=== PATIENT | female | born 1980 | race Caucasian/White ===

== ENCOUNTER 2018-08-14 10:05 | Observation (INO) | payer BC ==
[2018-08-14] VITALS: BP 99/55
[~2018-08-14] VITALS: Ht 157.5 cm; Wt 59.1 kg
[2018-08-14 10:34] LABS: BASOPHILS 0.9 % (0-2); EOSINOPHILS 2.1 % (0-7); HEMATOCRIT 26.7 % (36.0-48.0); HEMOGLOBIN 8.2 g/dL (12-16); IMMATURE GRANULOCYTES 0.2 % (0-5); LYMPHOCYTES 35.2 % (15-50); MCH 25.1 pg (26.0-34.0); MCHC 30.7 g/dL (31.0-37.0); MCV 81.7 fL (80.0-100.0); MEAN PLATELET VOLUME 8.4 fL (7.4-10.4); MONOCYTES 7.2 % (2-11); NEUTROPHILS 54.4 % (40-80); PLATELET COUNT 427 10x3/uL (130-400); RBC 3.27 10x6/uL (4.00-5.40); RDW 14.7 % (11.5-14.5); WBC 5.7 10x3/uL (4.8-10.8)
[2018-08-14 10:54] LABS: APTT 26.2 SECONDS (22.8-39.4); INR 1.08 (0.85-1.17); PROTIME 13.5 SECONDS (11.6-15.0)
[2018-08-14 11:06] LABS: ALBUMIN 3.4 g/dL (3.4-5.0); ALKALINE PHOSPHATASE 42 U/L (46-116); ALT (SGPT) 16 U/L (10-68); BILIRUBIN - TOTAL 0.22 mg/dL (0.2-1.3); CALC OSMOLALITY 274 mosm/kg (275-300); CALCIUM 8.5 mg/dL (8.5-10.1); CARBON DIOXIDE 27.9 mmol/L (21.0-32.0); CHLORIDE - SERUM 103 mmol/L (98-107); CREATININE - SERUM 0.8 mg/dL (0.6-1.3); GLUCOSE 84 mg/dL (74-106); POTASSIUM - SERUM 3.8 mmol/L (3.5-5.1); PROTEIN - SERUM 6.7 g/dL (6.4-8.2); SODIUM 139 mmol/L (136-145); UREA NITROGEN 7 mg/dL (7-18); eGFR NON AFRICAN AMERICAN 86 mL/min (90-120)
[2018-08-14 11:12] LABS: CKMB 0.4 U/L (0.0-3.6); CREATINE KINASE 65 UL (21-215); THYROID STIMULATING HORMONE 6.21 uIU/mL (0.36-3.74)
[2018-08-14 11:13] LABS: TROPONIN-I < 0.017 ng/mL (0.000-0.060)
[2018-08-14 12:12] VITALS: BP 119/74
[2018-08-14 12:13] LABS: T4 THYROXIN - FREE 0.73 ng/dL (0.76-1.46); T4 THYROXINE 5.2 ug/dL (4.7-13.3)
--- NOTE | 2018-08-14 12:42 | NUR ---
REPORT TO ANGELY GONZALEZ ON MED 2. WILL MEDICATE AND THEN TRANSPORT
--- NOTE | 2018-08-14 12:43 | NUR ---
RECIEVED REPORT FROM ER. ER STATED THEY WILL GIVE SYNTHROID AND ASA
[2018-08-14 13:45] VITALS: BP 121/70; Ht 157.5 cm; Wt 59.1 kg
[2018-08-14 16:08] VITALS: BP 123/64
--- NOTE | 2018-08-14 17:31 | NUR ---
UNIT ADMINISTRATER HAD TO BABYSIT THE PTS CHILD SO SHE COULD GET HER MRI. SHE ADVISED THE PT TO HACE THE CHILD TAKEN HOME SOON, PT SAID IT WOULD BE A WHILE. TILE GRINDER WAS INFORMED.
[2018-08-14 18:55] LABS: TOTAL IRON BIND CAPACITY 305 ug/dl (260-445)
--- NOTE | 2018-08-14 19:20 | NUR ---
PT IN BED. CHILD AT BEDSIDE. PT DENIES NEEDS AT THIS TIME
[2018-08-14 19:25] LABS: % SATURATION 2 % (15-55); IRON 9 ug/dl (35-150); UNSAT IRON BIND CAPACITY 296 ug/dl (150-375)
[2018-08-14 20:00] VITALS: BP 98/50
--- NOTE | 2018-08-15 02:05 | NUR ---
I have reviewed this patient and I concur with the Shift Assessment completed by the Licensed Practical Nurse today this shift.
[2018-08-15 04:23] VITALS: BP 90/54
[2018-08-15 05:48] LABS: BASOPHILS 0.4 % (0-2); EOSINOPHILS 4.5 % (0-7); HEMATOCRIT 27.4 % (36.0-48.0); HEMOGLOBIN 8.3 g/dL (12-16); LYMPHOCYTES 43.6 % (15-50); MCHC 30.3 g/dL (31.0-37.0); MCV 82.5 fL (80.0-100.0); MEAN PLATELET VOLUME 8.6 fL (7.4-10.4); MONOCYTES 8.7 % (2-11); NEUTROPHILS 42.8 % (40-80); PLATELET COUNT 456 10x3/uL (130-400); RBC 3.32 10x6/uL (4.00-5.40); RDW 14.9 % (11.5-14.5); WBC 4.7 10x3/uL (4.8-10.8)
[2018-08-15 06:54] LABS: ALBUMIN 2.9 g/dL (3.4-5.0); ALKALINE PHOSPHATASE 29 U/L (46-116); ALT (SGPT) 13 U/L (10-68); CALC OSMOLALITY 281 mosm/kg (275-300); CALCIUM 7.8 mg/dL (8.5-10.1); CARBON DIOXIDE 28.4 mmol/L (21.0-32.0); CHLORIDE - SERUM 107 mmol/L (98-107); CREATININE - SERUM 0.7 mg/dL (0.6-1.3); GLUCOSE 90 mg/dL (74-106); PROTEIN - SERUM 5.8 g/dL (6.4-8.2); SODIUM 142 mmol/L (136-145); eGFR NON AFRICAN AMERICAN > 90 mL/min (90-120)
[2018-08-15 06:55] LABS: UREA NITROGEN 9 mg/dL (7-18)
--- NOTE | 2018-08-15 07:33 | NUR ---
PT ASLEEP, DAUGHTER AT BEDISDE. DOESN'T KNOW WHEN CHILD WILL BE LEAVING. CL INREACH. SRX2.
--- NOTE | 2018-08-15 08:26 | NUR ---
SPOKE WITH PATIENT ABOUT CHILD STAYING IN ROOM. INFORMED PT AGAIN THAT CHILD CANNOT STAY. PT HAS NO ONE TO COME AND GET THE CHILD. SPOKE WITH HOUSE SUP WHO INSTRUCTS THAT IF NO ONE COMES TO GET CHILD- [facility] WILL HAVE TO BE CALLED. PATIENT INFORMED OF THIS. PATIENT ASKED IF SHE COULD LEAVE THE HOSPITAL AND I INFORMED HER YES BUT IT WILL BE AMA.
[2018-08-15 09:14] LABS: FOLATE (FOLIC ACID) - SERUM 11.8 ng/mL (>3.0)
[2018-08-15 09:23] VITALS: BP 107/56
--- NOTE | 2018-08-15 10:43 | NUR ---
CHILD'S FATHER IS HERE TO PICK CHILD UP.,
[2018-08-15 11:38] VITALS: BP 104/59
[2018-08-15] MEDS ORDERED: ESGIC TABLET1 TAB PO (15:57)
[2018-08-15] MEDS ORDERED: SYNTHROID50 MCG PO (15:58)
[2018-08-15 16:15] VITALS: BP 110/56
--- NOTE | 2018-08-15 16:58 | NUR ---
I have reviewed this patient and I concur with the Shift Assessment completed by the Licensed Practical Nurse today this shift.
[2018-08-15 20:00] VITALS: BP 101/56
--- NOTE | 2018-08-15 21:51 | NUR ---
INITIAL ROUNDS COMPLETED AT 1920 HRS. PT DENIED ANY DISCOMFORT. ASSESSMENT COMPLETED AT 2030 HRS. VSS. SR PER CM HR 63. PT ALERT AND ORIENTED TO PERSON, PLACE AND TIME. CHANI. EQUAL AND STRONG HAND AND FOOT STRENGHT. LUNGS CTA. IV TO RAC TENDER. DC'D WITH CATHETER INTACT. PT DECLINED NEW IV. PT CURRENTLY WATCHING TV; CALL LIGHT WITHIN REACH.
--- NOTE | 2018-08-15 22:37 | NUR ---
PT AMBULATING IN THE HALLS. GAIT EVEN AND STEADY. WILL CONTINUE TO MONITOR.
[2018-08-16] VITALS: BP 100/61
--- NOTE | 2018-08-16 00:06 | NUR ---
PT RESTING WITH EYES CLOSED. RESP EVEN AND REGULAR. SR UP X2,CALL LIGHT WITHIN REACH.
--- NOTE | 2018-08-16 02:17 | NUR ---
PT RESTING WITH EYES CLOSED. RESP EVEN AND REGULAR. SR UP X2, CALL LIGHT WITHIN REACH.
[2018-08-16 03:00] VITALS: BP 106/67
--- NOTE | 2018-08-16 04:17 | NUR ---
PT RESTING WITH EYES CLOSED. RESP EVEN AND REGULAR. SR UP X2, CALL LIGHT WITHIN REACH.
[2018-08-16 05:56] LABS: BASOPHILS 0.6 % (0-2); EOSINOPHILS 4.7 % (0-7); HEMATOCRIT 29.3 % (36.0-48.0); HEMOGLOBIN 8.7 g/dL (12-16); IMMATURE GRANULOCYTES 0.2 % (0-5); LYMPHOCYTES 34.4 % (15-50); MCH 24.6 pg (26.0-34.0); MCHC 29.7 g/dL (31.0-37.0); MEAN PLATELET VOLUME 8.7 fL (7.4-10.4); MONOCYTES 8.9 % (2-11); NEUTROPHILS 51.2 % (40-80); PLATELET COUNT 467 10x3/uL (130-400); RBC 3.53 10x6/uL (4.00-5.40); RDW 14.9 % (11.5-14.5); WBC 5.1 10x3/uL (4.8-10.8)
--- NOTE | 2018-08-16 06:02 | NUR ---
VSS THROUGHOUT NIGHT. PT RESTED WELL DURING SHIFT. NO CHANGES TO NEURO STATUS NOTED. NEEDS MET; WILL CONTINUE TO MONITOR.
[2018-08-16 06:33] LABS: ALBUMIN 2.9 g/dL (3.4-5.0); ALKALINE PHOSPHATASE 39 U/L (46-116); ALT (SGPT) 15 U/L (10-68); BILIRUBIN - TOTAL 0.08 mg/dL (0.2-1.3); CALC OSMOLALITY 279 mosm/kg (275-300); CARBON DIOXIDE 29.9 mmol/L (21.0-32.0); CHLORIDE - SERUM 106 mmol/L (98-107); CREATININE - SERUM 0.7 mg/dL (0.6-1.3); GLUCOSE 95 mg/dL (74-106); POTASSIUM - SERUM 4.4 mmol/L (3.5-5.1); PROTEIN - SERUM 6.1 g/dL (6.4-8.2); SODIUM 141 mmol/L (136-145); UREA NITROGEN 11 mg/dL (7-18); eGFR NON AFRICAN AMERICAN > 90 mL/min (90-120)
--- NOTE | 2018-08-16 14:25 | NUR ---
PATIENT IS STABLE AND VSS. PATIENT IS DCD TO HOME VIA PRIVATE CAR WITH FAMILY MEMBER DRIVING.
--- NOTE | 2018-08-17 08:56 | MORECARE ---
CASE MANAGEMENT DISCHARGE SUMMARY PATIENT: MAX MILLAN UNIT: [id number] ADM DATE: 08/14/18 AGE: 38 : 84 SEX: F ROOM/BED: D.2133 AUTHOR: REY DAS PHYSICIAN: REFERRING PHYSICIAN: ANTONELLA WAY MD DATE OF SERVICE: 08/17/18 Discharge Plan Patient Name: MAX MILLAN Facility: [facility]:[place] : 1980 Planned Disposition: Home Anticipated Discharge Date: 08/16/18 Discharge Date: 08/16/2018 Expected LOS: 2 Initial Reviewer: [email or web address] Initial Review Date: 08/17/2018 Generated: 08/17/18 9:56 am Comments DCP- Discharge Planning Updated by [email or web address]: Sheyla Gray on 08/15/18 9:[address] LATE ENTRY PATIENT'S MOTHER WILL HAVE TO DRIVE FROM [place] TO [place] [employer] TUB OPERATOR PATIENT FOR DISCHARGE PER THE PATIENT. PATIENT DID NOT FEEL SAFE DRIVING THAT DISTANCE TO HOME (8 HRS), HER MOTHER WOULD ARRIVE AT [id number] IN THE AM, PATIENT WILL BE DISCHARGED 08/16/18 FOR SAFE DISCHARGE AND TRANSPORTATION TO HOME Patient Name: MAX MILLAN Page [phone] at 0856 All edits/amendments must be made on the electronic document DICTATION DATE: 08/17/18854 EMBROIDERY DESIGNER: BENNY 08/17/1855 RPT#: [id number] DC DATE:08/16/18 STATUS: DIS IN [facility] [address] [place] [address] END OF REPORT
== END 2018-08-16 14:26 | disposition home or self-care (01) ==
LOC: D.ER 10:05 → D.M2 12:14 → OBSVTIME 12:15 → D.M2 08-16 14:26
PROVIDERS: Emergency Medicine; ADMIT Family Medicine; ATTEND Family Medicine
DX: G45.9 Transient cerebral ischemic attack, unspecified (principal); I69.854 Hemiplegia and hemiparesis following other cerebrovascular disease affecting left non-dominant side; R13.0 Aphagia; E03.9 Hypothyroidism, unspecified; F17.213 Nicotine dependence, cigarettes, with withdrawal; D64.9 Anemia, unspecified; R41.0 Disorientation, unspecified; R26.9 Unspecified abnormalities of gait and mobility; Z72.0 Tobacco use